=== PATIENT | female | born 1985 | race African-American/Black ===

== ENCOUNTER 2017-10-11 21:11 | Inpatient (IN) ==
[2017-10-11] MEDS ORDERED: SODIUM CHLORIDE 0.9% 2,000 ML IV STA (21:53)
[2017-10-11 22:02] LABS: Basophils # 0.2 10*3/uL (0.0-0.2); Basophils % 0.4 % (0.0-0.8); Hematocrit 45.7 VOL% (35.7-47.0); Hemoglobin 15.7 GM/DL (12.0-16.0); Immature Granulocytes % 4.5 %; Immature Granulocytes Absolute 1.73 #; Lymphocytes # 2.7 10*3/uL (1.4-4.0); Mean Corpuscular HGB Conc 34.4 GM/DL (32-36); Mean Corpuscular Hemoglobin 30 PG (27-34); Mean Platelet Volume 10.9 FL (9.6-12.0); Monocytes # 2.6 10*3/uL (0.11-0.8); Monocytes % 6.9 % (1.7-12.7); Neutrophils # 31.1 10*3/uL (1.4-7.4); Neutrophils % 81.2 % (38.7-73.9); Platelet Count 363 T/CUMM (130-400); Red Blood Count 5.25 MC/CUMM (3.8-5.5); Red Cell Distribution Width 11.6 % (9.3-17.3); White Blood Count 38.3 T/CUMM (4-12)
[2017-10-11] MEDS ORDERED: INSULIN REGULAR 100 UNIT/ML SUBCUT STA (22:02)
[2017-10-11] MEDS ORDERED: INSULIN REGULAR 100 UNIT/ML IV STA (22:02)
[2017-10-11] MEDS ORDERED: INSULIN REGULAR 100 UNIT/ML ONE ×2 (22:03→22:08)
[2017-10-11] MEDS ORDERED: ETOMIDATE 20 MG/10 ML VIAL IV ONE (22:21)
[2017-10-11] MEDS ORDERED: VECURONIUM 10 MG VIAL IV ONE (22:21)
[2017-10-11] MEDS ORDERED: ROCURONIUM 100 MG/10 ML VIAL IV ONE (22:21)
[2017-10-11 22:25] LABS: Albumin 4.1 G/DL (3.4-5.0); Bilirubin,Total 0.4 MG/DL (0.2-1.0); Calcium 8.8 MG/DL (8.5-10.1); Osmolality,Calculated 300.8 MOS/KG (273-304); Total Protein 8.4 G/DL (6.4-8.3)
[2017-10-11 22:27] LABS: ABG Oxygen Saturation 95.5 % (95-100); ABG PO2 99.3 MM HG (80-95); ABG TCO2 2.3 MMOL/L (23-27)
[2017-10-11 22:28] LABS: ABG Base Excess -30.4 MMOL/L (-2.5-2.5); ABG PCO2 11.1 MM HG (35-48)
[2017-10-11 22:29] LABS: Potassium 6.4 MMOL/L (3.5-5.1)
[2017-10-11 22:32] LABS: ABG PH 6.863 (7.35-7.45)
[2017-10-11 22:41] LABS: INR 0.9; PT Patient Result 9.8 SECS; Partial Thromboplastin Time 30.8 SECS (0-40)
[2017-10-11] MEDS ORDERED: SODIUM BICARBONATE 50 MEQ/50 ML SYRINGE IV ONE ×2 (22:41→22:45)
[2017-10-11 22:42] LABS: Apearance,Urine Slightly Hazy (Clear); Bacteria,Urine Occasional /HPF (Few); Bilirubin,Urine Negative (Negative); Blood, Urine Moderate mg/dL (Negative); Glucose,Urine (UA) >=500 mg/dL (Negative); Ketones,Urine 80 mg/dL (Negative); Mucus,Urine Occasional /LPF (Occasional); Nitrite,Urine Negative (Negative); Protein,Urine 100 MG/DL; RBC,Urine 1 /HPF (0-4); Squamous Epithelial Cell,Urine Occasional /HPF (0-10); Urine Color Yellow (Yellow); Urine Specific Gravity 1.018 (1.001-1.035); Urine Urobilinogen < 2.0 EU/DL (0.2-1.0); WBC,Urine 3 /HPF (0-6)
[2017-10-11 22:45] LABS: Barbiturates Screen,Urine Negative (Negative); Benzodiazepines Screen,Urine Negative (Negative); Cannabinoid Screen,Urine Negative (Negative); Opiate Screen,Urine Negative (Negative); Phencyclidine Screen,Urine Negative (Negative)
[2017-10-11 22:54] LABS: Lymphocytes 7 % (20-55); Platelet Estimate Normal; Segmented Neutrophils 89 % (50-85); Total Cells Counted 100
[2017-10-11] MEDS ORDERED: PROPOFOL 1,000 MG/100 ML BOTTLE IV ONE (22:55)
[2017-10-11] MEDS ORDERED: ALBUTEROL NEB SOLN 5 MG/ML 20 ML/BOTTLE CONT NEB STA (22:57)
[2017-10-11] MEDS ORDERED: CALCIUM CHLORIDE 1,000 MG/10 ML SYRINGE IV STA (22:57)
[2017-10-11] MEDS ORDERED: VANCOMYCIN INJ 1,000 MG in SODIUM CHLORIDE 0.9% 250 ML IV STA (22:57)
[2017-10-11] MEDS ORDERED: SODIUM BICARBONATE 50 MEQ/50 ML VIAL IV STA (23:05)
[2017-10-11 23:22] LABS: Lactic Acid 1.4 MMOL/L (0.4-2.0)
[2017-10-11] MEDS: PROPOFOL 1,000 MG/100 ML BOTTLE IV SCH (23:40)
[2017-10-11] MEDS ORDERED: VANCOMYCIN 1,000 MG VIAL ONE (23:43)
[2017-10-11] MEDS ORDERED: CALCIUM CHLORIDE 1,000 MG/10 ML SYRINGE IV ONE (23:43)
[2017-10-12] MEDS: INSULIN REGULAR DRIP 100 ML IV SCH ×2 (00:01→23:00)
[2017-10-12 00:02] LABS: Osmolality,Calculated 320.1 MOS/KG (273-304); Potassium 4.2 MMOL/L (3.5-5.1)
[2017-10-12 00:15] LABS: Calcium 5.7 MG/DL (8.5-10.1)
[2017-10-12 00:44] LABS: ABG Base Excess -27.6 MMOL/L (-2.5-2.5); ABG HCO3 4.7 MMOL/L (20-26); ABG Oxygen Saturation 99.2 % (95-100); ABG PCO2 25.6 MM HG (35-48); ABG PO2 416.2 MM HG (80-95); ABG TCO2 5.5 MMOL/L (23-27)
[2017-10-12] MEDS ORDERED: CALCIUM CHLORIDE 1,000 MG/10 ML SYRINGE IV STA (00:45)
[2017-10-12 00:47] LABS: ABG PH 6.881 (7.35-7.45)
[2017-10-12] MEDS ORDERED: CALCIUM CHLORIDE 1,000 MG/10 ML SYRINGE IV ONE (00:47)
[2017-10-12 00:53] LABS: HIV Antigen/Antibody Result Nonreactive (Nonreactive); Hepatitis B Surface Ag Quant < 0.10 Index; Hepatitis B Surface Ag Result Negative (Negative); Hepatitis C Virus Ab Quant 0.13 Index; Hepatitis C Virus Ab Result Negative (Negative)
[2017-10-12] MEDS ORDERED: SODIUM CHLORIDE 0.9% 1,000 ML IV ONE (02:21)
[2017-10-12] MEDS ORDERED: ALBUTEROL/IPRATROPIUM 3 ML NEB RESP TX PRN (02:21)
[2017-10-12] MEDS ORDERED: SODIUM BICARB INJ 100 MEQ in STERILE WATER INJ 400 ML IV PRN (02:21)
[2017-10-12] MEDS ORDERED: POTASSIUM CHLORIDE RIDER 10 MEQ in PREMIX 1 EACH IV PRN (02:21)
[2017-10-12] MEDS ORDERED: MAGNESIUM SULF RIDER 4 GM in PREMIX 1 EACH IV PRN (02:21)
[2017-10-12] MEDS ORDERED: SODIUM PHOSPHATE INJ 21 MMOL in SODIUM CHLORIDE 0.9% 250 ML IV PRN (02:21)
[2017-10-12] MEDS ORDERED: DEXTROSE 50% 25 GM/50 ML VIAL IV PRN ×2 (02:21)
[2017-10-12] MEDS ORDERED: INSULIN REGULAR DRIP 100 ML IV SCH (02:21)
[2017-10-12] MEDS ORDERED: MAGNESIUM SULF RIDER 2 GM in PREMIX 1 EACH IV PRN (02:21)
[2017-10-12] MEDS ORDERED: SODIUM BICARBONATE 50 MEQ/50 ML SYRINGE IV ONE ×3 (02:34→07:13)
[2017-10-12 02:46] LABS: Basophils # 0.1 10*3/uL (0.0-0.2); Basophils % 0.3 % (0.0-0.8); Mean Corpuscular Hemoglobin 30 PG (27-34); Mean Platelet Volume 10.5 FL (9.6-12.0)
[2017-10-12 02:57] LABS: Hematocrit 33.5 VOL% (35.7-47.0); Hemoglobin 11.3 GM/DL (12.0-16.0); Immature Granulocytes % 4.9 %; Immature Granulocytes Absolute 1.18 #; Lymphocytes # 2.7 10*3/uL (1.4-4.0); Lymphocytes % 11.1 % (21.3-54.2); Mean Corpuscular HGB Conc 33.7 GM/DL (32-36); Mean Corpuscular Volume 88.6 FL (87-102); Monocytes # 0.6 10*3/uL (0.11-0.8); Monocytes % 2.3 % (1.7-12.7); Neutrophils # 19.5 10*3/uL (1.4-7.4); Neutrophils % 81.4 % (38.7-73.9); Red Cell Distribution Width 11.5 % (9.3-17.3); White Blood Count 23.9 T/CUMM (4-12)
[2017-10-12 02:58] LABS: Platelet Count 200 T/CUMM (130-400); Red Blood Count 3.78 MC/CUMM (3.8-5.5)
[2017-10-12 03:06] LABS: Calcium 10.5 MG/DL (8.5-10.1); Potassium 4.1 MMOL/L (3.5-5.1)
[2017-10-12] MEDS: ENOXAPARIN 40 MG/0.4 ML SYRINGE SUBCUT SCH (03:06)
[2017-10-12] MEDS: PIPERACILLIN/TAZOBACTAM 3,375 MG in SODIUM CHLORIDE 0.9% 100 ML IV SCH ×3 (03:07→18:15)
[2017-10-12] MEDS: ALBUTEROL/IPRATROPIUM 3 ML NEB RESP TX SCH ×4 (03:09→20:50)
[2017-10-12 03:14] LABS: Band Neutrophils 13 % (0-10); Lymphocytes 14 % (20-55); Segmented Neutrophils 71 % (50-85); Total Cells Counted 100
[2017-10-12] MEDS: SODIUM CHLORIDE 0.9% 1,000 ML IV SCH ×2 (03:40→05:40)
[2017-10-12 03:49] LABS: ABG Base Excess -22.2 MMOL/L (-2.5-2.5); ABG HCO3 8.2 MMOL/L (20-26); ABG Oxygen Saturation 97.8 % (95-100); ABG PCO2 34.6 MM HG (35-48); ABG PO2 136.2 MM HG (80-95); ABG TCO2 9.3 MMOL/L (23-27)
[2017-10-12 03:53] LABS: ABG PH 6.992 (7.35-7.45)
[2017-10-12] MEDS ORDERED: SODIUM CHLORIDE 0.9% 1,000 ML IV SCH (05:54)
[2017-10-12 06:13] LABS: ABG Base Excess -15.5 MMOL/L (-2.5-2.5); ABG HCO3 11.5 MMOL/L (20-26); ABG Oxygen Saturation 98.4 % (95-100); ABG PCO2 31.2 MM HG (35-48); ABG PO2 164.3 MM HG (80-95); ABG TCO2 12.5 MMOL/L (23-27)
[2017-10-12 06:16] LABS: ABG PH 7.185 (7.35-7.45)
[2017-10-12] MEDS ORDERED: VANCOMYCIN INJ 1,250 MG in SODIUM CHLORIDE 0.9% 250 ML IV SCH (06:30)
[2017-10-12 06:54] LABS: Calcium 8.6 MG/DL (8.5-10.1); Osmolality,Calculated 319.7 MOS/KG (273-304); Potassium 3.5 MMOL/L (3.5-5.1)
[2017-10-12 08:04] LABS: ABG Base Excess -11.1 MMOL/L (-2.5-2.5); ABG HCO3 12.9 MMOL/L (20-26); ABG Oxygen Saturation 98.4 % (95-100); ABG PCO2 24.3 MM HG (35-48); ABG PH 7.343 (7.35-7.45); ABG PO2 194.4 MM HG (80-95); ABG TCO2 13.7 MMOL/L (23-27)
[2017-10-12] MEDS: PROPOFOL 1,000 MG/100 ML BOTTLE IV SCH ×2 (08:35→13:45)
[2017-10-12] MEDS: fentaNYL INJ 1,250 MCG in SODIUM CHLORIDE 0.9% 225 ML IV SCH ×3 (09:50→16:35)
[2017-10-12 10:13] LABS: ABG Base Excess -11.8 MMOL/L (-2.5-2.5); ABG HCO3 15.2 MMOL/L (20-26); ABG Oxygen Saturation 99.8 % (95-100); ABG PCO2 25.5 MM HG (35-48); ABG PH 7.318 (7.35-7.45); ABG TCO2 11.9 MMOL/L (23-27)
[2017-10-12 10:32] LABS: Calcium 8.3 MG/DL (8.5-10.1); Osmolality,Calculated 316.4 MOS/KG (273-304); Potassium 3.1 MMOL/L (3.5-5.1)
[2017-10-12] MEDS: POTASSIUM CHLORIDE RIDER 20 MEQ in PREMIX 1 EACH IV PRN (10:50)
[2017-10-12 14:06] LABS: ABG Base Excess -13.4 MMOL/L (-2.5-2.5); ABG HCO3 12.6 MMOL/L (20-26); ABG Oxygen Saturation 98.4 % (95-100); ABG PCO2 29.8 MM HG (35-48); ABG PH 7.244 (7.35-7.45); ABG PO2 232.8 MM HG (80-95); ABG TCO2 13.5 MMOL/L (23-27)
[2017-10-12 14:29] LABS: Calcium 8.5 MG/DL (8.5-10.1); Osmolality,Calculated 319.1 MOS/KG (273-304); Potassium 3.7 MMOL/L (3.5-5.1)
[2017-10-12] MEDS: SODIUM CHLOR 0.45% KCL 20 MEQ 20 MEQ/1,000 ML BAG IV SCH ×2 (15:30→23:33)
[2017-10-12] MEDS: SODIUM CHLORIDE 0.45% 1,000 ML IV SCH (17:49)
[2017-10-12 18:31] LABS: Calcium 8.8 MG/DL (8.5-10.1); Osmolality,Calculated 317.3 MOS/KG (273-304); Potassium 3.9 MMOL/L (3.5-5.1)
[2017-10-12] MEDS: fentaNYL INJ 2,500 MCG in SODIUM CHLORIDE 0.9% 450 ML IV SCH (20:15)
[2017-10-12 22:11] LABS: ABG Base Excess -12.8 MMOL/L (-2.5-2.5); ABG HCO3 14.5 MMOL/L (20-26); ABG Oxygen Saturation 99.4 % (95-100); ABG PCO2 34.2 MM HG (35-48); ABG PH 7.223 (7.35-7.45); ABG TCO2 13.1 MMOL/L (23-27)
[2017-10-12 22:37] LABS: Calcium 8.4 MG/DL (8.5-10.1); Osmolality,Calculated 315.3 MOS/KG (273-304)
[2017-10-12] MEDS: VANCOMYCIN INJ 1,250 MG in SODIUM CHLORIDE 0.9% 250 ML IV SCH (23:33)
[2017-10-13] MEDS: PROPOFOL 1,000 MG/100 ML BOTTLE IV SCH ×2 (00:10→11:30)
[2017-10-13] MEDS: ALBUTEROL/IPRATROPIUM 3 ML NEB RESP TX SCH ×4 (01:04→21:15)
[2017-10-13] MEDS: fentaNYL INJ 2,500 MCG in SODIUM CHLORIDE 0.9% 450 ML IV SCH ×4 (01:38→20:16)
[2017-10-13 03:48] LABS: ABG Base Excess -9.9 MMOL/L (-2.5-2.5); ABG HCO3 16.7 MMOL/L (20-26); ABG Oxygen Saturation 98.4 % (95-100); ABG PCO2 39.1 MM HG (35-48); ABG PH 7.248 (7.35-7.45); ABG TCO2 17.9 MMOL/L (23-27)
[2017-10-13 03:58] LABS: Basophils % 0.2 % (0.0-0.8); Eosinophils # 0.1 10*3/uL (0.0-0.87); Eosinophils % 0.4 % (0.00-10.9); Hematocrit 27.8 VOL% (35.7-47.0); Hemoglobin 9.8 GM/DL (12.0-16.0); Immature Granulocytes % 1.4 %; Immature Granulocytes Absolute 0.19 #; Lymphocytes % 7.8 % (21.3-54.2); Mean Corpuscular HGB Conc 35.3 GM/DL (32-36); Mean Corpuscular Hemoglobin 30 PG (27-34); Mean Platelet Volume 10.9 FL (9.6-12.0); Monocytes % 7.6 % (1.7-12.7); Neutrophils # 10.9 10*3/uL (1.4-7.4); Neutrophils % 82.6 % (38.7-73.9); Platelet Count 184 T/CUMM (130-400); Red Blood Count 3.31 MC/CUMM (3.8-5.5); White Blood Count 13.1 T/CUMM (4-12)
[2017-10-13] MEDS: PIPERACILLIN/TAZOBACTAM 3,375 MG in SODIUM CHLORIDE 0.9% 100 ML IV SCH ×3 (04:20→18:00)
[2017-10-13 04:34] LABS: Calcium 8.4 MG/DL (8.5-10.1); Osmolality,Calculated 314.9 MOS/KG (273-304); Potassium 3.7 MMOL/L (3.5-5.1)
[2017-10-13 05:31] LABS: Band Neutrophils 6 % (0-10); Hypochromasia 1+; Lymphocytes 10 % (20-55); Microcytosis Slight; Platelet Estimate Adequate; Segmented Neutrophils 81 % (50-85); Total Cells Counted 100
[2017-10-13] MEDS: POTASSIUM CHLORIDE RIDER 20 MEQ in PREMIX 1 EACH IV PRN (07:18)
[2017-10-13] MEDS: SODIUM CHLOR 0.45% KCL 20 MEQ 20 MEQ/1,000 ML BAG IV SCH ×2 (07:40→16:00)
[2017-10-13] MEDS: ENOXAPARIN 40 MG/0.4 ML SYRINGE SUBCUT SCH (09:00)
[2017-10-13] MEDS: fentaNYL INJ 1,250 MCG in SODIUM CHLORIDE 0.9% 225 ML IV SCH (09:30)
[2017-10-13] MEDS ORDERED: DIVALPROEX 500 MG TABLET PO SCH (11:30)
[2017-10-13] MEDS ORDERED: DULoxetine 30 MG CAPSULE PO SCH (11:30)
[2017-10-13] MEDS: BENZTROPINE 1 MG TABLET PO SCH ×2 (12:00→20:17)
[2017-10-13] MEDS: DULoxetine 30 MG CAPSULE PO SCH (12:00)
[2017-10-13] MEDS: VALPROIC ACID 250 MG/5 ML UDCUP PO SCH ×2 (13:15→18:20)
[2017-10-13] MEDS: ARIPiprazole 5 MG TABLET PO SCH (13:15)
[2017-10-13] MEDS: SODIUM CHLORIDE 0.45% 1,000 ML IV SCH (14:43)
[2017-10-13] MEDS: INSULIN REGULAR DRIP 100 ML IV SCH (15:00)
[2017-10-13] MEDS: busPIRone 15 MG TABLET PO SCH ×2 (15:00→20:17)
[2017-10-13 20:24] LABS: Calcium 8.1 MG/DL (8.5-10.1); Potassium 3.7 MMOL/L (3.5-5.1)
[2017-10-14] MEDS: VALPROIC ACID 250 MG/5 ML UDCUP PO SCH ×4 (00:51→18:29)
[2017-10-14] MEDS: PIPERACILLIN/TAZOBACTAM 3,375 MG in SODIUM CHLORIDE 0.9% 100 ML IV SCH ×3 (02:43→18:29)
[2017-10-14] MEDS: INSULIN REGULAR DRIP 100 ML IV SCH (02:57)
[2017-10-14] MEDS: PROPOFOL 1,000 MG/100 ML BOTTLE IV SCH ×2 (02:57→20:15)
[2017-10-14] MEDS: ALBUTEROL/IPRATROPIUM 3 ML NEB RESP TX SCH ×4 (03:04→19:45)
[2017-10-14 03:55] LABS: ABG Base Excess -6.9 MMOL/L (-2.5-2.5); ABG HCO3 19.4 MMOL/L (20-26); ABG Oxygen Saturation 98.6 % (95-100); ABG PCO2 42.3 MM HG (35-48); ABG PH 7.279 (7.35-7.45); ABG TCO2 20.7 MMOL/L (23-27)
[2017-10-14 04:05] LABS: Basophils % 0.3 % (0.0-0.8); Eosinophils # 0.1 10*3/uL (0.0-0.87); Eosinophils % 0.6 % (0.00-10.9); Hematocrit 24.2 VOL% (35.7-47.0); Hemoglobin 8.9 GM/DL (12.0-16.0); Immature Granulocytes % 0.8 %; Immature Granulocytes Absolute 0.12 #; Lymphocytes # 1.5 10*3/uL (1.4-4.0); Lymphocytes % 9.5 % (21.3-54.2); Mean Corpuscular HGB Conc 36.8 GM/DL (32-36); Mean Corpuscular Hemoglobin 30 PG (27-34); Mean Corpuscular Volume 82.3 FL (87-102); Mean Platelet Volume 10.7 FL (9.6-12.0); Monocytes # 1.1 10*3/uL (0.11-0.8); Monocytes % 7.2 % (1.7-12.7); Neutrophils # 12.7 10*3/uL (1.4-7.4); Neutrophils % 81.6 % (38.7-73.9); Platelet Count 170 T/CUMM (130-400); Red Blood Count 2.94 MC/CUMM (3.8-5.5); Red Cell Distribution Width 13.1 % (9.3-17.3); White Blood Count 15.5 T/CUMM (4-12)
[2017-10-14 04:39] LABS: Calcium 8.1 MG/DL (8.5-10.1); Osmolality,Calculated 309.6 MOS/KG (273-304); Potassium 3.8 MMOL/L (3.5-5.1)
[2017-10-14 05:13] LABS: Band Neutrophils 8 % (0-10); Lymphocytes 5 % (20-55); Segmented Neutrophils 79 % (50-85); Total Cells Counted 100
[2017-10-14 05:14] LABS: Hypochromasia 1+; Microcytosis Slight
[2017-10-14] MEDS: POTASSIUM CHLORIDE RIDER 20 MEQ in PREMIX 1 EACH IV PRN (06:30)
[2017-10-14] MEDS ORDERED: INFLUENZA VIRUS VACCINE 0.5 ML SYRINGE IM ONE (08:39)
[2017-10-14] MEDS ORDERED: PNEUMOCOCCAL VACCINE (13 VALENT) 0.5 ML SYRINGE IM ONE (08:43)
[2017-10-14] MEDS: SODIUM CHLOR 0.45% KCL 20 MEQ 20 MEQ/1,000 ML BAG IV SCH ×3 (09:05→16:36)
[2017-10-14] MEDS: BENZTROPINE 1 MG TABLET PO SCH ×2 (09:55→21:07)
[2017-10-14] MEDS: busPIRone 15 MG TABLET PO SCH ×3 (09:55→21:07)
[2017-10-14] MEDS: ARIPiprazole 5 MG TABLET PO SCH (09:55)
[2017-10-14] MEDS: ENOXAPARIN 40 MG/0.4 ML SYRINGE SUBCUT SCH (10:00)
[2017-10-14] MEDS: INSULIN LISPRO 100 UNIT/ML SUBCUT SCH ×3 (12:13→20:39)
[2017-10-14] MEDS: VANCOMYCIN INJ 1,250 MG in SODIUM CHLORIDE 0.9% 250 ML IV SCH (15:14)
[2017-10-14] MEDS: fentaNYL INJ 2,500 MCG in SODIUM CHLORIDE 0.9% 450 ML IV SCH (19:26)
[2017-10-15] MEDS: ALBUTEROL/IPRATROPIUM 3 ML NEB RESP TX SCH ×5 (00:05→20:22)
[2017-10-15] MEDS: SODIUM CHLOR 0.45% KCL 20 MEQ 20 MEQ/1,000 ML BAG IV SCH ×3 (00:51→23:25)
[2017-10-15] MEDS: VALPROIC ACID 250 MG/5 ML UDCUP PO SCH ×4 (00:51→18:02)
[2017-10-15] MEDS: INSULIN LISPRO 100 UNIT/ML SUBCUT SCH ×6 (00:51→21:19)
[2017-10-15] MEDS: PROPOFOL 1,000 MG/100 ML BOTTLE IV SCH ×4 (01:07→18:49)
[2017-10-15 03:58] LABS: ABG Base Excess -6.6 MMOL/L (-2.5-2.5); ABG HCO3 18.3 MMOL/L (20-26); ABG Oxygen Saturation 98.2 % (95-100); ABG PCO2 33.6 MM HG (35-48); ABG PH 7.353 (7.35-7.45); ABG PO2 183.6 MM HG (80-95); ABG TCO2 19.3 MMOL/L (23-27); Allen Test Positive; Pt O2 Delivery Device Ventilator
[2017-10-15 04:09] LABS: Basophils # 0.1 10*3/uL (0.0-0.2); Basophils % 0.3 % (0.0-0.8); Eosinophils # 0.1 10*3/uL (0.0-0.87); Eosinophils % 0.8 % (0.00-10.9); Hematocrit 22.5 VOL% (35.7-47.0); Hemoglobin 7.8 GM/DL (12.0-16.0); Immature Granulocytes % 0.6 %; Lymphocytes # 1.9 10*3/uL (1.4-4.0); Lymphocytes % 10.3 % (21.3-54.2); Mean Corpuscular HGB Conc 34.7 GM/DL (32-36); Mean Corpuscular Hemoglobin 30 PG (27-34); Mean Corpuscular Volume 85.2 FL (87-102); Mean Platelet Volume 10.4 FL (9.6-12.0); Monocytes # 1.3 10*3/uL (0.11-0.8); Monocytes % 6.9 % (1.7-12.7); Neutrophils # 14.6 10*3/uL (1.4-7.4); Neutrophils % 81.1 % (38.7-73.9); Platelet Count 178 T/CUMM (130-400); Red Blood Count 2.64 MC/CUMM (3.8-5.5); Red Cell Distribution Width 13.4 % (9.3-17.3)
[2017-10-15] MEDS: PIPERACILLIN/TAZOBACTAM 3,375 MG in SODIUM CHLORIDE 0.9% 100 ML IV SCH ×3 (04:14→21:20)
[2017-10-15 04:46] LABS: Calcium 8.2 MG/DL (8.5-10.1); Potassium 3.6 MMOL/L (3.5-5.1)
[2017-10-15 04:49] LABS: Band Neutrophils 2 % (0-10); Eosinophils 1 % (0-10); Hypochromasia 1+; Lymphocytes 9 % (20-55); Microcytosis Slight; Platelet Estimate Normal; Segmented Neutrophils 80 % (50-85); Total Cells Counted 100
[2017-10-15] MEDS: POTASSIUM CHLORIDE RIDER 20 MEQ in PREMIX 1 EACH IV PRN (06:12)
[2017-10-15] MEDS: busPIRone 15 MG TABLET PO SCH ×3 (08:12→21:23)
[2017-10-15] MEDS: BENZTROPINE 1 MG TABLET PO SCH ×2 (08:12→21:23)
[2017-10-15] MEDS: ENOXAPARIN 40 MG/0.4 ML SYRINGE SUBCUT SCH (08:13)
[2017-10-15] MEDS: ARIPiprazole 5 MG TABLET PO SCH (08:13)
[2017-10-15] MEDS ORDERED: SODIUM CHLORIDE 0.9% 1,000 ML IV PRN (10:23)
[2017-10-15] MEDS: VANCOMYCIN INJ 1,250 MG in SODIUM CHLORIDE 0.9% 250 ML IV SCH (14:46)
[2017-10-15 18:02] LABS: Hematocrit 29.9 VOL% (35.7-47.0); Hemoglobin 10.4 GM/DL (12.0-16.0)
[2017-10-16] MEDS: VALPROIC ACID 250 MG/5 ML UDCUP PO SCH ×4 (00:33→17:42)
[2017-10-16] MEDS: INSULIN LISPRO 100 UNIT/ML SUBCUT SCH ×6 (00:33→21:09)
[2017-10-16] MEDS: ALBUTEROL/IPRATROPIUM 3 ML NEB RESP TX SCH ×4 (00:38→20:11)
[2017-10-16] MEDS: PROPOFOL 1,000 MG/100 ML BOTTLE IV SCH ×4 (02:24→18:48)
[2017-10-16] MEDS: PIPERACILLIN/TAZOBACTAM 3,375 MG in SODIUM CHLORIDE 0.9% 100 ML IV SCH ×3 (04:45→21:06)
[2017-10-16 05:19] LABS: Basophils # 0.1 10*3/uL (0.0-0.2); Basophils % 0.4 % (0.0-0.8); Eosinophils # 0.2 10*3/uL (0.0-0.87); Eosinophils % 1.4 % (0.00-10.9); Hematocrit 30.3 VOL% (35.7-47.0); Hemoglobin 11.1 GM/DL (12.0-16.0); Immature Granulocytes % 1.5 %; Immature Granulocytes Absolute 0.24 #; Lymphocytes # 2.3 10*3/uL (1.4-4.0); Lymphocytes % 14.1 % (21.3-54.2); Mean Corpuscular HGB Conc 36.6 GM/DL (32-36); Mean Corpuscular Hemoglobin 31 PG (27-34); Mean Corpuscular Volume 84.9 FL (87-102); Mean Platelet Volume 10.1 FL (9.6-12.0); Monocytes # 1.8 10*3/uL (0.11-0.8); Monocytes % 11.3 % (1.7-12.7); Neutrophils # 11.6 10*3/uL (1.4-7.4); Neutrophils % 71.3 % (38.7-73.9); Platelet Count 197 T/CUMM (130-400); Red Blood Count 3.57 MC/CUMM (3.8-5.5); White Blood Count 16.2 T/CUMM (4-12)
[2017-10-16 05:47] LABS: Band Neutrophils 2 % (0-10); Giant Platelets Few; Hypochromasia 1+; Lymphocytes 13 % (20-55); Microcytosis Slight; Platelet Estimate Adequate; Segmented Neutrophils 76 % (50-85); Total Cells Counted 100
[2017-10-16 05:49] LABS: Calcium 8.1 MG/DL (8.5-10.1); Potassium 3.7 MMOL/L (3.5-5.1)
[2017-10-16] MEDS: SODIUM CHLOR 0.45% KCL 20 MEQ 20 MEQ/1,000 ML BAG IV SCH ×2 (07:37→16:39)
[2017-10-16] MEDS: fentaNYL INJ 2,500 MCG in SODIUM CHLORIDE 0.9% 450 ML IV SCH ×2 (07:38→18:26)
[2017-10-16] MEDS ORDERED: PNEUMOCOCCAL VACCINE (13 VALENT) 0.5 ML SYRINGE IM ONE (09:00)
[2017-10-16] MEDS ORDERED: INFLUENZA VIRUS VACCINE 0.5 ML SYRINGE IM ONE (09:00)
[2017-10-16] MEDS: BENZTROPINE 1 MG TABLET PO SCH ×2 (09:19→21:10)
[2017-10-16] MEDS: busPIRone 15 MG TABLET PO SCH ×3 (09:19→21:10)
[2017-10-16] MEDS: ARIPiprazole 5 MG TABLET PO SCH (09:19)
[2017-10-16] MEDS: ENOXAPARIN 40 MG/0.4 ML SYRINGE SUBCUT SCH (09:20)
[2017-10-16] MEDS: VANCOMYCIN INJ 1,250 MG in SODIUM CHLORIDE 0.9% 250 ML IV SCH (14:20)
[2017-10-17] MEDS: INSULIN LISPRO 100 UNIT/ML SUBCUT SCH ×6 (00:06→21:10)
[2017-10-17] MEDS: VALPROIC ACID 250 MG/5 ML UDCUP PO SCH ×4 (00:07→18:21)
[2017-10-17] MEDS: PROPOFOL 1,000 MG/100 ML BOTTLE IV SCH ×5 (00:08→20:30)
[2017-10-17] MEDS: SODIUM CHLOR 0.45% KCL 20 MEQ 20 MEQ/1,000 ML BAG IV SCH ×5 (00:09→21:38)
[2017-10-17] MEDS: ALBUTEROL/IPRATROPIUM 3 ML NEB RESP TX SCH ×4 (01:48→19:10)
[2017-10-17] MEDS: PIPERACILLIN/TAZOBACTAM 3,375 MG in SODIUM CHLORIDE 0.9% 100 ML IV SCH ×3 (03:29→21:09)
[2017-10-17 04:16] LABS: Allen Test Positive; Pt O2 Delivery Device Ventilator
[2017-10-17 04:17] LABS: ABG Base Excess -7.5 MMOL/L (-2.5-2.5); ABG HCO3 17.3 MMOL/L (20-26); ABG Oxygen Saturation 95.6 % (95-100); ABG PCO2 32.8 MM HG (35-48); ABG TCO2 18.3 MMOL/L (23-27)
[2017-10-17 04:30] LABS: Basophils % 0.5 % (0.0-0.8); Eosinophils % 1.4 % (0.00-10.9); Hematocrit 33.7 VOL% (35.7-47.0); Hemoglobin 11.4 GM/DL (12.0-16.0); Immature Granulocytes % 5.9 %; Lymphocytes % 15.9 % (21.3-54.2); Mean Corpuscular HGB Conc 33.8 GM/DL (32-36); Mean Corpuscular Hemoglobin 30 PG (27-34); Mean Corpuscular Volume 88.5 FL (87-102); Monocytes % 16.4 % (1.7-12.7); Neutrophils # 10.3 10*3/uL (1.4-7.4); Neutrophils % 59.9 % (38.7-73.9); Platelet Count 249 T/CUMM (130-400); Red Blood Count 3.81 MC/CUMM (3.8-5.5); Red Cell Distribution Width 14.3 % (9.3-17.3); White Blood Count 17.2 T/CUMM (4-12)
[2017-10-17 04:31] LABS: Basophils # 0.1 10*3/uL (0.0-0.2); Eosinophils # 0.2 10*3/uL (0.0-0.87); Immature Granulocytes Absolute 1.02 #; Lymphocytes # 2.7 10*3/uL (1.4-4.0); Monocytes # 2.8 10*3/uL (0.11-0.8); NRBC # 0.03 10*3/uL
[2017-10-17 04:57] LABS: Calcium 8.3 MG/DL (8.5-10.1); Osmolality,Calculated 304.4 MOS/KG (273-304); Potassium 4.1 MMOL/L (3.5-5.1)
[2017-10-17 05:06] LABS: Band Neutrophils 2 % (0-10); Giant Platelets Few; Hypochromasia Slight; Lymphocytes 18 % (20-55); Platelet Estimate Adequate; Segmented Neutrophils 62 % (50-85); Total Cells Counted 100
[2017-10-17 05:07] LABS: Microcytosis Slight; Ovalocytes Slight
[2017-10-17 05:40] LABS: Prealbumin 6.5 MG/DL (20-40)
[2017-10-17] MEDS: ENOXAPARIN 40 MG/0.4 ML SYRINGE SUBCUT SCH (09:35)
[2017-10-17] MEDS: ARIPiprazole 5 MG TABLET PO SCH (09:41)
[2017-10-17] MEDS: busPIRone 15 MG TABLET PO SCH ×3 (09:41→21:16)
[2017-10-17] MEDS: BENZTROPINE 1 MG TABLET PO SCH ×2 (09:42→21:16)
[2017-10-17] MEDS ORDERED: INSULIN GLARGINE 100 UNIT/ML SUBCUT ONE (12:23)
[2017-10-17] MEDS: LORazepam 2 MG/1 ML VIAL IV PRN ×2 (12:25→18:19)
[2017-10-17] MEDS: VANCOMYCIN INJ 1,250 MG in SODIUM CHLORIDE 0.9% 250 ML IV SCH (15:14)
[2017-10-17] MEDS: fentaNYL INJ 2,500 MCG in SODIUM CHLORIDE 0.9% 450 ML IV SCH (18:37)
[2017-10-17] MEDS ORDERED: INSULIN GLARGINE 100 UNIT/ML SUBCUT SCH (21:00)
[2017-10-18] MEDS: VALPROIC ACID 250 MG/5 ML UDCUP PO SCH ×4 (00:14→17:06)
[2017-10-18] MEDS: INSULIN LISPRO 100 UNIT/ML SUBCUT SCH ×6 (00:14→19:46)
[2017-10-18] MEDS: ALBUTEROL/IPRATROPIUM 3 ML NEB RESP TX SCH ×4 (00:52→19:02)
[2017-10-18] MEDS: PIPERACILLIN/TAZOBACTAM 3,375 MG in SODIUM CHLORIDE 0.9% 100 ML IV SCH ×3 (03:55→19:46)
[2017-10-18 04:00] LABS: ABG Base Excess -4.5 MMOL/L (-2.5-2.5); ABG HCO3 20.7 MMOL/L (20-26); ABG Oxygen Saturation 99.3 % (95-100); ABG PCO2 30.5 MM HG (35-48); ABG PH 7.409 (7.35-7.45); ABG TCO2 17.6 MMOL/L (23-27); Allen Test Positive; Pt O2 Delivery Device Ventilator
[2017-10-18] MEDS: PROPOFOL 1,000 MG/100 ML BOTTLE IV SCH ×3 (04:10→18:52)
[2017-10-18 04:44] LABS: Basophils # 0.1 10*3/uL (0.0-0.2); Basophils % 0.4 % (0.0-0.8); Eosinophils # 0.2 10*3/uL (0.0-0.87); Eosinophils % 1.3 % (0.00-10.9); Hematocrit 28.7 VOL% (35.7-47.0); Hemoglobin 9.6 GM/DL (12.0-16.0); Immature Granulocytes Absolute 1.48 #; Lymphocytes # 2.3 10*3/uL (1.4-4.0); Lymphocytes % 16.9 % (21.3-54.2); Mean Corpuscular HGB Conc 33.4 GM/DL (32-36); Mean Corpuscular Hemoglobin 30 PG (27-34); Mean Corpuscular Volume 88.9 FL (87-102); Mean Platelet Volume 9.7 FL (9.6-12.0); Monocytes # 2.2 10*3/uL (0.11-0.8); Monocytes % 16.5 % (1.7-12.7); Neutrophils # 7.3 10*3/uL (1.4-7.4); Neutrophils % 53.9 % (38.7-73.9); Platelet Count 272 T/CUMM (130-400); Red Blood Count 3.23 MC/CUMM (3.8-5.5); White Blood Count 13.5 T/CUMM (4-12)
[2017-10-18 05:05] LABS: Band Neutrophils 4 % (0-10); Eosinophils 1 % (0-10); Lymphocytes 23 % (20-55); Myelocytes 1 %; Segmented Neutrophils 55 % (50-85); Total Cells Counted 100
[2017-10-18 05:06] LABS: Hypochromasia 1+; Microcytosis Slight; Platelet Estimate Normal
[2017-10-18 05:16] LABS: Calcium 7.6 MG/DL (8.5-10.1); Osmolality,Calculated 305.4 MOS/KG (273-304); Potassium 3.8 MMOL/L (3.5-5.1)
[2017-10-18] MEDS: SODIUM CHLOR 0.45% KCL 20 MEQ 20 MEQ/1,000 ML BAG IV SCH ×4 (06:00→18:52)
[2017-10-18] MEDS: POTASSIUM CHLORIDE RIDER 20 MEQ in PREMIX 1 EACH IV PRN (06:38)
[2017-10-18] MEDS: LORazepam 2 MG/1 ML VIAL IV PRN ×2 (07:42→17:06)
[2017-10-18] MEDS ORDERED: FUROSEMIDE 40 MG/4 ML VIAL IV ONE (08:57)
[2017-10-18] MEDS: busPIRone 15 MG TABLET PO SCH ×3 (09:49→20:05)
[2017-10-18] MEDS: BENZTROPINE 1 MG TABLET PO SCH ×2 (09:49→20:05)
[2017-10-18] MEDS: ENOXAPARIN 40 MG/0.4 ML SYRINGE SUBCUT SCH (09:49)
[2017-10-18] MEDS: ARIPiprazole 5 MG TABLET PO SCH (09:51)
[2017-10-18] MEDS: VANCOMYCIN INJ 1,250 MG in SODIUM CHLORIDE 0.9% 250 ML IV SCH (09:54)
[2017-10-18] MEDS ORDERED: INSULIN GLARGINE 100 UNIT/ML SUBCUT ONE ×2 (12:11→13:10)
[2017-10-18] MEDS: DESITIN 4OZ/NYSTATIN 15 GRAM MIXTURE PASTE TOP SCH ×2 (12:53→20:05)
[2017-10-18] MEDS: fentaNYL INJ 2,500 MCG in SODIUM CHLORIDE 0.9% 450 ML IV SCH (18:23)
[2017-10-18] MEDS: INSULIN GLARGINE 100 UNIT/ML SUBCUT SCH (20:05)
[2017-10-19] MEDS: VALPROIC ACID 250 MG/5 ML UDCUP PO SCH ×4 (00:21→17:24)
[2017-10-19] MEDS: INSULIN LISPRO 100 UNIT/ML SUBCUT SCH ×6 (00:21→21:35)
[2017-10-19] MEDS: ALBUTEROL/IPRATROPIUM 3 ML NEB RESP TX SCH ×4 (01:33→19:19)
[2017-10-19] MEDS: PROPOFOL 1,000 MG/100 ML BOTTLE IV SCH ×2 (01:40→06:35)
[2017-10-19 03:23] LABS: ABG Base Excess -3.5 MMOL/L (-2.5-2.5); ABG HCO3 19.7 MMOL/L (20-26); ABG Oxygen Saturation 98.4 % (95-100); ABG PCO2 29.3 MM HG (35-48); ABG PH 7.446 (7.35-7.45); ABG PO2 155.2 MM HG (80-95); ABG TCO2 20.6 MMOL/L (23-27)
[2017-10-19] MEDS: SODIUM CHLOR 0.45% KCL 20 MEQ 20 MEQ/1,000 ML BAG IV SCH ×3 (04:12→22:30)
[2017-10-19] MEDS: PIPERACILLIN/TAZOBACTAM 3,375 MG in SODIUM CHLORIDE 0.9% 100 ML IV SCH ×3 (04:12→21:35)
[2017-10-19] MEDS: VANCOMYCIN INJ 1,250 MG in SODIUM CHLORIDE 0.9% 250 ML IV SCH ×2 (04:13→21:37)
[2017-10-19 04:45] LABS: Basophils # 0.1 10*3/uL (0.0-0.2); Basophils % 0.5 % (0.0-0.8); Eosinophils # 0.2 10*3/uL (0.0-0.87); Eosinophils % 1.5 % (0.00-10.9); Hematocrit 27.9 VOL% (35.7-47.0); Hemoglobin 9.4 GM/DL (12.0-16.0); Immature Granulocytes Absolute 2.09 #; Lymphocytes # 2.2 10*3/uL (1.4-4.0); Lymphocytes % 14.9 % (21.3-54.2); Mean Corpuscular HGB Conc 33.7 GM/DL (32-36); Mean Corpuscular Hemoglobin 30 PG (27-34); Mean Corpuscular Volume 88.6 FL (87-102); Mean Platelet Volume 9.8 FL (9.6-12.0); Monocytes # 2.4 10*3/uL (0.11-0.8); Monocytes % 16.1 % (1.7-12.7); Neutrophils # 7.9 10*3/uL (1.4-7.4); Platelet Count 327 T/CUMM (130-400); Red Blood Count 3.15 MC/CUMM (3.8-5.5); White Blood Count 14.9 T/CUMM (4-12)
[2017-10-19 05:04] LABS: Calcium 7.6 MG/DL (8.5-10.1); Osmolality,Calculated 300.7 MOS/KG (273-304)
[2017-10-19 05:22] LABS: Band Neutrophils 7 % (0-10); Eosinophils 2 % (0-10); Lymphocytes 16 % (20-55); Platelet Estimate Adequate; Segmented Neutrophils 50 % (50-85); Total Cells Counted 100
[2017-10-19 05:23] LABS: Giant Platelets Few; Hypochromasia 1+; Microcytosis Slight
[2017-10-19] MEDS: BENZTROPINE 1 MG TABLET PO SCH ×2 (08:20→21:36)
[2017-10-19] MEDS: ARIPiprazole 5 MG TABLET PO SCH (08:20)
[2017-10-19] MEDS: INSULIN GLARGINE 100 UNIT/ML SUBCUT SCH ×2 (08:20→21:36)
[2017-10-19] MEDS: busPIRone 15 MG TABLET PO SCH ×3 (08:20→21:36)
[2017-10-19] MEDS: ENOXAPARIN 40 MG/0.4 ML SYRINGE SUBCUT SCH (08:20)
[2017-10-19] MEDS: LORazepam 2 MG/1 ML VIAL IV PRN ×3 (10:55→19:35)
[2017-10-19] MEDS ORDERED: FUROSEMIDE 40 MG/4 ML VIAL IV ONE (11:01)
[2017-10-19] MEDS ORDERED: HALOPERIDOL 5 MG/ML AMP IV ONE (11:31)
[2017-10-19] MEDS: DESITIN 4OZ/NYSTATIN 15 GRAM MIXTURE PASTE TOP SCH ×2 (12:20→21:36)
[2017-10-19] MEDS: NYSTATIN POWDER 15 GM BOTTLE TOP SCH ×2 (12:20→21:36)
[2017-10-19 12:23] LABS: Allen Test Positive
[2017-10-19 12:24] LABS: ABG Base Excess -2.5 MMOL/L (-2.5-2.5); ABG HCO3 22.3 MMOL/L (20-26); ABG Oxygen Saturation 96.4 % (95-100); ABG PCO2 28.1 MM HG (35-48); ABG PH 7.465 (7.35-7.45); ABG PO2 73.1 MM HG (80-95); ABG TCO2 18.2 MMOL/L (23-27)
[2017-10-19] MEDS: methylPREDNISolone SOD SUC 40 MG/1 ML VIAL IV SCH ×2 (14:11→21:37)
[2017-10-19] MEDS: CLORAZEPATE 7.5 MG TABLET PO SCH ×2 (15:49→21:36)
[2017-10-20] MEDS: INSULIN LISPRO 100 UNIT/ML SUBCUT SCH ×6 (00:02→21:19)
[2017-10-20] MEDS: VALPROIC ACID 250 MG/5 ML UDCUP PO SCH ×4 (00:03→18:12)
[2017-10-20] MEDS: SODIUM CHLOR 0.45% KCL 20 MEQ 20 MEQ/1,000 ML BAG IV SCH ×2 (00:44→10:08)
[2017-10-20] MEDS: ALBUTEROL/IPRATROPIUM 3 ML NEB RESP TX SCH ×4 (01:20→19:24)
[2017-10-20] MEDS: PIPERACILLIN/TAZOBACTAM 3,375 MG in SODIUM CHLORIDE 0.9% 100 ML IV SCH ×3 (04:50→23:48)
[2017-10-20 06:07] LABS: Basophils # 0.1 10*3/uL (0.0-0.2); Basophils % 0.4 % (0.0-0.8); Eosinophils # 0.1 10*3/uL (0.0-0.87); Eosinophils % 0.4 % (0.00-10.9); Hemoglobin 9.8 GM/DL (12.0-16.0); Immature Granulocytes % 10.7 %; Immature Granulocytes Absolute 1.95 #; Lymphocytes # 2.7 10*3/uL (1.4-4.0); Lymphocytes % 14.6 % (21.3-54.2); Mean Corpuscular HGB Conc 33.8 GM/DL (32-36); Mean Corpuscular Hemoglobin 30 PG (27-34); Mean Corpuscular Volume 87.3 FL (87-102); Monocytes # 2.5 10*3/uL (0.11-0.8); Monocytes % 13.9 % (1.7-12.7); Neutrophils # 10.9 10*3/uL (1.4-7.4); Platelet Count 416 T/CUMM (130-400); Red Blood Count 3.32 MC/CUMM (3.8-5.5); Red Cell Distribution Width 13.2 % (9.3-17.3); White Blood Count 18.2 T/CUMM (4-12)
[2017-10-20] MEDS: methylPREDNISolone SOD SUC 40 MG/1 ML VIAL IV SCH (06:30)
[2017-10-20 06:33] LABS: Band Neutrophils 11 % (0-10); Hypochromasia 1+; Lymphocytes 10 % (20-55); Platelet Estimate Increased; Segmented Neutrophils 66 % (50-85); Total Cells Counted 100
[2017-10-20 06:36] LABS: Calcium 8.4 MG/DL (8.5-10.1); Osmolality,Calculated 293.6 MOS/KG (273-304)
[2017-10-20] MEDS: INSULIN GLARGINE 100 UNIT/ML SUBCUT SCH ×2 (08:33→21:20)
[2017-10-20] MEDS: ARIPiprazole 5 MG TABLET PO SCH (08:34)
[2017-10-20] MEDS: CLORAZEPATE 7.5 MG TABLET PO SCH ×3 (08:34→21:14)
[2017-10-20] MEDS: ENOXAPARIN 40 MG/0.4 ML SYRINGE SUBCUT SCH (08:34)
[2017-10-20] MEDS: BENZTROPINE 1 MG TABLET PO SCH ×2 (08:34→21:14)
[2017-10-20] MEDS: busPIRone 15 MG TABLET PO SCH ×3 (08:34→21:14)
[2017-10-20] MEDS: DESITIN 4OZ/NYSTATIN 15 GRAM MIXTURE PASTE TOP SCH ×2 (11:46→21:15)
[2017-10-20] MEDS: NYSTATIN POWDER 15 GM BOTTLE TOP SCH ×2 (11:46→21:15)
[2017-10-20] MEDS ORDERED: FUROSEMIDE 40 MG/4 ML VIAL IV ONE (12:00)
[2017-10-20] MEDS: predniSONE 20 MG TABLET PO SCH (13:00)
[2017-10-20] MEDS: VANCOMYCIN INJ 1,250 MG in SODIUM CHLORIDE 0.9% 250 ML IV SCH (22:08)
[2017-10-21] MEDS: ALBUTEROL/IPRATROPIUM 3 ML NEB RESP TX SCH ×4 (00:10→20:10)
[2017-10-21] MEDS: VALPROIC ACID 250 MG/5 ML UDCUP PO SCH ×4 (00:21→17:55)
[2017-10-21] MEDS: INSULIN LISPRO 100 UNIT/ML SUBCUT SCH ×6 (00:21→20:27)
[2017-10-21] MEDS: PIPERACILLIN/TAZOBACTAM 3,375 MG in SODIUM CHLORIDE 0.9% 100 ML IV SCH ×3 (06:02→22:34)
[2017-10-21] MEDS: INSULIN GLARGINE 100 UNIT/ML SUBCUT SCH ×2 (10:42→20:28)
[2017-10-21] MEDS: predniSONE 20 MG TABLET PO SCH (10:44)
[2017-10-21] MEDS: busPIRone 15 MG TABLET PO SCH ×3 (10:44→20:27)
[2017-10-21] MEDS: BENZTROPINE 1 MG TABLET PO SCH ×2 (10:44→20:27)
[2017-10-21] MEDS: CLORAZEPATE 7.5 MG TABLET PO SCH ×3 (10:44→20:27)
[2017-10-21] MEDS: DULoxetine 30 MG CAPSULE PO SCH (10:45)
[2017-10-21] MEDS: ENOXAPARIN 40 MG/0.4 ML SYRINGE SUBCUT SCH (10:46)
[2017-10-21] MEDS: NYSTATIN POWDER 15 GM BOTTLE TOP SCH ×2 (14:01→20:34)
[2017-10-21] MEDS: DESITIN 4OZ/NYSTATIN 15 GRAM MIXTURE PASTE TOP SCH ×2 (14:02→20:34)
[2017-10-21] MEDS: ARIPiprazole 5 MG TABLET PO SCH (14:02)
[2017-10-21] MEDS: VANCOMYCIN INJ 1,250 MG in SODIUM CHLORIDE 0.9% 250 ML IV SCH (21:25)
[2017-10-22] MEDS: INSULIN LISPRO 100 UNIT/ML SUBCUT SCH ×6 (00:59→21:57)
[2017-10-22] MEDS: VALPROIC ACID 250 MG/5 ML UDCUP PO SCH ×4 (01:00→17:18)
[2017-10-22] MEDS: ALBUTEROL/IPRATROPIUM 3 ML NEB RESP TX SCH ×4 (01:25→20:08)
[2017-10-22 05:04] LABS: Basophils # 0.1 10*3/uL (0.0-0.2); Basophils % 0.3 % (0.0-0.8); Eosinophils % 0.1 % (0.00-10.9); Hematocrit 27.7 VOL% (35.7-47.0); Hemoglobin 9.3 GM/DL (12.0-16.0); Immature Granulocytes % 3.9 %; Immature Granulocytes Absolute 0.82 #; Lymphocytes # 3.3 10*3/uL (1.4-4.0); Lymphocytes % 15.4 % (21.3-54.2); Mean Corpuscular HGB Conc 33.6 GM/DL (32-36); Mean Corpuscular Hemoglobin 30 PG (27-34); Mean Corpuscular Volume 87.9 FL (87-102); Mean Platelet Volume 9.8 FL (9.6-12.0); Monocytes # 2.3 10*3/uL (0.11-0.8); Monocytes % 10.7 % (1.7-12.7); Neutrophils # 14.7 10*3/uL (1.4-7.4); Neutrophils % 69.6 % (38.7-73.9); Platelet Count 518 T/CUMM (130-400); Red Blood Count 3.15 MC/CUMM (3.8-5.5); Red Cell Distribution Width 12.8 % (9.3-17.3); White Blood Count 21.1 T/CUMM (4-12)
[2017-10-22 05:26] LABS: Calcium 8.3 MG/DL (8.5-10.1); Osmolality,Calculated 304.4 MOS/KG (273-304); Potassium 3.7 MMOL/L (3.5-5.1)
[2017-10-22 05:40] LABS: Band Neutrophils 4 % (0-10); Giant Platelets Few; Hypochromasia 1+; Lymphocytes 23 % (20-55); Microcytosis Slight; Platelet Estimate Increased; Segmented Neutrophils 65 % (50-85); Total Cells Counted 100
[2017-10-22] MEDS: PIPERACILLIN/TAZOBACTAM 3,375 MG in SODIUM CHLORIDE 0.9% 100 ML IV SCH ×2 (06:16→15:19)
[2017-10-22] MEDS: predniSONE 20 MG TABLET PO SCH (08:47)
[2017-10-22] MEDS: CLORAZEPATE 7.5 MG TABLET PO SCH ×3 (08:47→21:54)
[2017-10-22] MEDS: busPIRone 15 MG TABLET PO SCH ×3 (08:47→21:54)
[2017-10-22] MEDS: DULoxetine 30 MG CAPSULE PO SCH (08:47)
[2017-10-22] MEDS: BENZTROPINE 1 MG TABLET PO SCH ×2 (08:47→21:54)
[2017-10-22] MEDS: DESITIN 4OZ/NYSTATIN 15 GRAM MIXTURE PASTE TOP SCH ×2 (08:48→21:57)
[2017-10-22] MEDS: NYSTATIN POWDER 15 GM BOTTLE TOP SCH ×2 (08:48→21:57)
[2017-10-22] MEDS: INSULIN GLARGINE 100 UNIT/ML SUBCUT SCH ×2 (08:48→21:55)
[2017-10-22] MEDS: ENOXAPARIN 40 MG/0.4 ML SYRINGE SUBCUT SCH (08:48)
[2017-10-22] MEDS: ARIPiprazole 5 MG TABLET PO SCH (09:08)
[2017-10-22] MEDS ORDERED: predniSONE 20 MG TABLET PO SCH (13:34)
[2017-10-22] MEDS: SODIUM CHLORIDE 0.9% 1,000 ML IV SCH (17:18)
[2017-10-22 17:47] LABS: Apearance,Urine CLEAR (Clear); Bilirubin,Urine Negative (Negative); Blood, Urine Small mg/dL (Negative); Glucose,Urine (UA) >=500 mg/dL (Negative); Ketones,Urine 20 mg/dL (Negative); Mucus,Urine Occasional /LPF (Occasional); Nitrite,Urine Negative (Negative); Protein,Urine Negative; RBC,Urine 14 /HPF (0-4); Squamous Epithelial Cell,Urine Occasional /HPF (0-10); Urine Color Straw (Yellow); Urine Specific Gravity 1.017 (1.001-1.035); Urine Urobilinogen < 2.0 EU/DL (0.2-1.0); WBC,Urine 16 /HPF (0-6)
[2017-10-22] MEDS: VANCOMYCIN INJ 1,250 MG in SODIUM CHLORIDE 0.9% 250 ML IV SCH (21:59)
[2017-10-23] MEDS: ALBUTEROL/IPRATROPIUM 3 ML NEB RESP TX SCH ×4 (00:24→19:00)
[2017-10-23] MEDS: PIPERACILLIN/TAZOBACTAM 3,375 MG in SODIUM CHLORIDE 0.9% 100 ML IV SCH ×3 (00:56→16:03)
[2017-10-23] MEDS: VALPROIC ACID 250 MG/5 ML UDCUP PO SCH ×4 (00:56→17:10)
[2017-10-23] MEDS: INSULIN LISPRO 100 UNIT/ML SUBCUT SCH ×6 (00:57→21:42)
[2017-10-23 05:08] LABS: Basophils # 0.1 10*3/uL (0.0-0.2); Basophils % 0.3 % (0.0-0.8); Eosinophils # 0.1 10*3/uL (0.0-0.87); Eosinophils % 0.3 % (0.00-10.9); Hemoglobin 9.1 GM/DL (12.0-16.0); Immature Granulocytes % 3.7 %; Lymphocytes # 4.2 10*3/uL (1.4-4.0); Lymphocytes % 19.7 % (21.3-54.2); Mean Corpuscular Hemoglobin 30 PG (27-34); Mean Corpuscular Volume 86.1 FL (87-102); Mean Platelet Volume 9.5 FL (9.6-12.0); Monocytes # 2.1 10*3/uL (0.11-0.8); Monocytes % 9.7 % (1.7-12.7); Neutrophils # 14.2 10*3/uL (1.4-7.4); Neutrophils % 66.3 % (38.7-73.9); Platelet Count 528 T/CUMM (130-400); Red Blood Count 3.02 MC/CUMM (3.8-5.5); Red Cell Distribution Width 12.9 % (9.3-17.3); White Blood Count 21.5 T/CUMM (4-12)
[2017-10-23 05:39] LABS: Band Neutrophils 2 % (0-10); Giant Platelets Few; Hypochromasia 1+; Lymphocytes 15 % (20-55); Microcytosis Slight; Ovalocytes Slight; Platelet Estimate Increased; Segmented Neutrophils 74 % (50-85); Total Cells Counted 100
[2017-10-23] MEDS: busPIRone 15 MG TABLET PO SCH ×3 (08:53→21:40)
[2017-10-23] MEDS: DULoxetine 30 MG CAPSULE PO SCH (08:53)
[2017-10-23] MEDS: CLORAZEPATE 7.5 MG TABLET PO SCH ×3 (08:53→21:40)
[2017-10-23] MEDS: BENZTROPINE 1 MG TABLET PO SCH ×2 (08:53→21:40)
[2017-10-23] MEDS: ENOXAPARIN 40 MG/0.4 ML SYRINGE SUBCUT SCH (08:54)
[2017-10-23] MEDS: ARIPiprazole 5 MG TABLET PO SCH (08:54)
[2017-10-23] MEDS: INSULIN GLARGINE 100 UNIT/ML SUBCUT SCH ×2 (08:54→21:41)
[2017-10-23] MEDS: NYSTATIN POWDER 15 GM BOTTLE TOP SCH ×2 (08:55→21:48)
[2017-10-23] MEDS: DESITIN 4OZ/NYSTATIN 15 GRAM MIXTURE PASTE TOP SCH ×2 (08:55→21:48)
[2017-10-23] MEDS ORDERED: FLUCONAZOLE INJ 200 MG in PREMIX 1 EACH IV SCH (16:00)
[2017-10-23] MEDS ORDERED: VANCOMYCIN INJ 1,250 MG in SODIUM CHLORIDE 0.9% 250 ML IV SCH (16:00)
[2017-10-23] MEDS: SODIUM CHLORIDE 0.9% 1,000 ML IV SCH ×2 (20:10→20:11)
[2017-10-24] MEDS: INSULIN LISPRO 100 UNIT/ML SUBCUT SCH ×6 (00:24→20:48)
[2017-10-24] MEDS: VALPROIC ACID 250 MG/5 ML UDCUP PO SCH ×4 (00:24→17:05)
[2017-10-24] MEDS: PIPERACILLIN/TAZOBACTAM 3,375 MG in SODIUM CHLORIDE 0.9% 100 ML IV SCH ×2 (00:26→08:48)
[2017-10-24] MEDS: ALBUTEROL/IPRATROPIUM 3 ML NEB RESP TX SCH ×4 (00:43→20:24)
[2017-10-24 05:20] LABS: Basophils % 0.2 % (0.0-0.8); Eosinophils # 0.1 10*3/uL (0.0-0.87); Eosinophils % 0.3 % (0.00-10.9); Hematocrit 25.4 VOL% (35.7-47.0); Hemoglobin 8.9 GM/DL (12.0-16.0); Immature Granulocytes % 2.9 %; Immature Granulocytes Absolute 0.53 #; Lymphocytes # 3.5 10*3/uL (1.4-4.0); Lymphocytes % 18.6 % (21.3-54.2); Mean Corpuscular Hemoglobin 30 PG (27-34); Mean Corpuscular Volume 85.2 FL (87-102); Mean Platelet Volume 9.4 FL (9.6-12.0); Monocytes # 1.6 10*3/uL (0.11-0.8); Monocytes % 8.5 % (1.7-12.7); NRBC # 0.02 10*3/uL; Neutrophils # 12.9 10*3/uL (1.4-7.4); Neutrophils % 69.5 % (38.7-73.9); Platelet Count 487 T/CUMM (130-400); Red Blood Count 2.98 MC/CUMM (3.8-5.5); Red Cell Distribution Width 12.7 % (9.3-17.3); White Blood Count 18.5 T/CUMM (4-12)
[2017-10-24 05:50] LABS: Calcium 7.7 MG/DL (8.5-10.1); Osmolality,Calculated 288.7 MOS/KG (273-304)
[2017-10-24 05:56] LABS: Band Neutrophils 4 % (0-10); Giant Platelets Few; Hypochromasia 1+; Lymphocytes 16 % (20-55); Ovalocytes Slight; Platelet Estimate Adequate; Segmented Neutrophils 74 % (50-85); Total Cells Counted 100
[2017-10-24 05:57] LABS: Microcytosis Slight
[2017-10-24] MEDS: ARIPiprazole 5 MG TABLET PO SCH (08:47)
[2017-10-24] MEDS: DULoxetine 30 MG CAPSULE PO SCH (08:47)
[2017-10-24] MEDS: busPIRone 15 MG TABLET PO SCH ×3 (08:47→20:43)
[2017-10-24] MEDS: BENZTROPINE 1 MG TABLET PO SCH ×2 (08:47→20:43)
[2017-10-24] MEDS: predniSONE 20 MG TABLET PO SCH (08:47)
[2017-10-24] MEDS: CLORAZEPATE 7.5 MG TABLET PO SCH ×3 (08:48→20:43)
[2017-10-24] MEDS: ENOXAPARIN 40 MG/0.4 ML SYRINGE SUBCUT SCH (08:48)
[2017-10-24] MEDS: INSULIN GLARGINE 100 UNIT/ML SUBCUT SCH ×2 (08:48→20:43)
[2017-10-24] MEDS: DESITIN 4OZ/NYSTATIN 15 GRAM MIXTURE PASTE TOP SCH ×2 (08:49→20:43)
[2017-10-24] MEDS: NYSTATIN POWDER 15 GM BOTTLE TOP SCH ×2 (08:49→20:43)
[2017-10-24] MEDS ORDERED: POTASSIUM CHLORIDE 20 MEQ TABLET PO PRN (08:52)
[2017-10-24] MEDS: POTASSIUM CHLORIDE RIDER 20 MEQ in PREMIX 1 EACH IV PRN ×2 (10:08→12:17)
[2017-10-24] MEDS: SULFAMETHOX/TRIMETHOPRIM 800-160 MG TABLET PO SCH ×2 (11:49→20:43)
[2017-10-25] MEDS: ALBUTEROL/IPRATROPIUM 3 ML NEB RESP TX SCH ×4 (00:15→20:19)
[2017-10-25] MEDS: VALPROIC ACID 250 MG/5 ML UDCUP PO SCH ×4 (00:40→17:11)
[2017-10-25] MEDS: ACETAMINOPHEN 500 MG TABLET PO PRN ×3 (00:40→15:35)
[2017-10-25] MEDS: INSULIN LISPRO 100 UNIT/ML SUBCUT SCH ×6 (01:14→21:02)
[2017-10-25 07:36] LABS: Calcium 8.1 MG/DL (8.5-10.1); Osmolality,Calculated 282.3 MOS/KG (273-304); Potassium 3.6 MMOL/L (3.5-5.1)
[2017-10-25] MEDS: predniSONE 20 MG TABLET PO SCH (09:08)
[2017-10-25] MEDS: CLORAZEPATE 7.5 MG TABLET PO SCH ×3 (09:08→21:02)
[2017-10-25] MEDS: DULoxetine 30 MG CAPSULE PO SCH (09:08)
[2017-10-25] MEDS: ARIPiprazole 5 MG TABLET PO SCH (09:08)
[2017-10-25] MEDS: busPIRone 15 MG TABLET PO SCH ×3 (09:08→21:02)
[2017-10-25] MEDS: BENZTROPINE 1 MG TABLET PO SCH ×2 (09:09→21:02)
[2017-10-25] MEDS: NYSTATIN POWDER 15 GM BOTTLE TOP SCH ×2 (09:09→21:05)
[2017-10-25] MEDS: INSULIN GLARGINE 100 UNIT/ML SUBCUT SCH ×2 (09:09→21:03)
[2017-10-25] MEDS: DESITIN 4OZ/NYSTATIN 15 GRAM MIXTURE PASTE TOP SCH ×2 (09:09→21:05)
[2017-10-25] MEDS: ENOXAPARIN 40 MG/0.4 ML SYRINGE SUBCUT SCH (09:09)
[2017-10-25] MEDS: SULFAMETHOX/TRIMETHOPRIM 800-160 MG TABLET PO SCH ×2 (09:09→21:02)
[2017-10-25 09:42] LABS: Apearance,Urine CLOUDY (Clear); Bilirubin,Urine Negative (Negative); Blood, Urine Large mg/dL (Negative); Glucose,Urine (UA) Negative (Negative); Ketones,Urine 5 mg/dL (Negative); Nitrite,Urine Negative (Negative); Protein,Urine 30 MG/DL; RBC,Urine 1216 /HPF (0-4); Squamous Epithelial Cell,Urine Occasional /HPF (0-10); Urine Color Yellow (Yellow); Urine Specific Gravity 1.013 (1.001-1.035); Urine Urobilinogen < 2.0 EU/DL (0.2-1.0); WBC,Urine 63 /HPF (0-6)
[2017-10-26] MEDS: ALBUTEROL/IPRATROPIUM 3 ML NEB RESP TX SCH ×4 (00:15→19:49)
[2017-10-26] MEDS: VALPROIC ACID 250 MG/5 ML UDCUP PO SCH ×2 (00:23→06:12)
[2017-10-26] MEDS: INSULIN LISPRO 100 UNIT/ML SUBCUT SCH ×6 (00:52→21:46)
[2017-10-26 06:25] LABS: Basophils % 0.3 % (0.0-0.8); Eosinophils # 0.1 10*3/uL (0.0-0.87); Eosinophils % 0.5 % (0.00-10.9); Hematocrit 25.7 VOL% (35.7-47.0); Hemoglobin 8.5 GM/DL (12.0-16.0); Lymphocytes # 3.3 10*3/uL (1.4-4.0); Lymphocytes % 22.4 % (21.3-54.2); Mean Corpuscular HGB Conc 33.1 GM/DL (32-36); Mean Corpuscular Hemoglobin 29 PG (27-34); Mean Corpuscular Volume 88.9 FL (87-102); Mean Platelet Volume 9.4 FL (9.6-12.0); Monocytes # 1.4 10*3/uL (0.11-0.8); Monocytes % 9.2 % (1.7-12.7); Neutrophils # 9.7 10*3/uL (1.4-7.4); Neutrophils % 65.6 % (38.7-73.9); Platelet Count 383 T/CUMM (130-400); Red Blood Count 2.89 MC/CUMM (3.8-5.5); Red Cell Distribution Width 13.2 % (9.3-17.3); White Blood Count 14.8 T/CUMM (4-12)
[2017-10-26 07:00] LABS: Calcium 7.7 MG/DL (8.5-10.1); Osmolality,Calculated 283.1 MOS/KG (273-304); Potassium 3.6 MMOL/L (3.5-5.1)
[2017-10-26] MEDS: INSULIN GLARGINE 100 UNIT/ML SUBCUT SCH ×2 (09:06→21:46)
[2017-10-26] MEDS: DIVALPROEX 500 MG TABLET PO SCH ×2 (09:09→21:45)
[2017-10-26] MEDS: ENOXAPARIN 40 MG/0.4 ML SYRINGE SUBCUT SCH (09:09)
[2017-10-26] MEDS: ARIPiprazole 5 MG TABLET PO SCH (09:09)
[2017-10-26] MEDS: BENZTROPINE 1 MG TABLET PO SCH ×2 (09:10→21:45)
[2017-10-26] MEDS: SULFAMETHOX/TRIMETHOPRIM 800-160 MG TABLET PO SCH (09:10)
[2017-10-26] MEDS: DESITIN 4OZ/NYSTATIN 15 GRAM MIXTURE PASTE TOP SCH ×2 (09:10→21:50)
[2017-10-26] MEDS: DULoxetine 30 MG CAPSULE PO SCH (09:10)
[2017-10-26] MEDS: busPIRone 15 MG TABLET PO SCH ×3 (09:10→21:45)
[2017-10-26] MEDS: CLORAZEPATE 7.5 MG TABLET PO SCH ×3 (09:10→21:45)
[2017-10-26] MEDS: predniSONE 20 MG TABLET PO SCH (09:10)
[2017-10-26] MEDS: NYSTATIN POWDER 15 GM BOTTLE TOP SCH ×2 (09:10→21:50)
[2017-10-26] MEDS: ACETAMINOPHEN 500 MG TABLET PO PRN (17:00)
[2017-10-26] MEDS ORDERED: NITROFURANTOIN MACRO/MONO 100 MG CAPSULE PO SCH (21:00)
[2017-10-26] MEDS: SULFAMETHOX/TRIMETHOPRIM 400-80 MG TABLET PO SCH (21:45)
[2017-10-27] MEDS: INSULIN LISPRO 100 UNIT/ML SUBCUT SCH ×6 (00:11→20:56)
[2017-10-27] MEDS: ALBUTEROL/IPRATROPIUM 3 ML NEB RESP TX SCH ×4 (00:46→19:21)
[2017-10-27] MEDS: BENZTROPINE 1 MG TABLET PO SCH ×2 (09:13→21:06)
[2017-10-27] MEDS: ARIPiprazole 5 MG TABLET PO SCH (09:13)
[2017-10-27] MEDS: DULoxetine 30 MG CAPSULE PO SCH (09:13)
[2017-10-27] MEDS: predniSONE 20 MG TABLET PO SCH (09:13)
[2017-10-27] MEDS: DIVALPROEX 500 MG TABLET PO SCH ×2 (09:13→21:07)
[2017-10-27] MEDS: SULFAMETHOX/TRIMETHOPRIM 400-80 MG TABLET PO SCH ×2 (09:13→21:06)
[2017-10-27] MEDS: ENOXAPARIN 40 MG/0.4 ML SYRINGE SUBCUT SCH (09:13)
[2017-10-27] MEDS: busPIRone 15 MG TABLET PO SCH ×3 (09:13→21:06)
[2017-10-27] MEDS: DESITIN 4OZ/NYSTATIN 15 GRAM MIXTURE PASTE TOP SCH ×2 (09:14→21:09)
[2017-10-27] MEDS: NYSTATIN POWDER 15 GM BOTTLE TOP SCH ×2 (09:14→21:09)
[2017-10-27] MEDS: INSULIN GLARGINE 100 UNIT/ML SUBCUT SCH ×2 (09:21→21:07)
[2017-10-27] MEDS: ACETAMINOPHEN 500 MG TABLET PO PRN (13:29)
[2017-10-28] MEDS: ALBUTEROL/IPRATROPIUM 3 ML NEB RESP TX SCH ×4 (01:00→18:09)
[2017-10-28] MEDS: INSULIN LISPRO 100 UNIT/ML SUBCUT SCH ×5 (08:37→21:48)
[2017-10-28] MEDS: DULoxetine 30 MG CAPSULE PO SCH (09:20)
[2017-10-28] MEDS: DIVALPROEX 500 MG TABLET PO SCH ×2 (09:20→21:47)
[2017-10-28] MEDS: ARIPiprazole 5 MG TABLET PO SCH (09:20)
[2017-10-28] MEDS: SULFAMETHOX/TRIMETHOPRIM 400-80 MG TABLET PO SCH ×2 (09:20→21:47)
[2017-10-28] MEDS: BENZTROPINE 1 MG TABLET PO SCH ×2 (09:20→21:47)
[2017-10-28] MEDS: DESITIN 4OZ/NYSTATIN 15 GRAM MIXTURE PASTE TOP SCH ×2 (09:21→21:48)
[2017-10-28] MEDS: NYSTATIN POWDER 15 GM BOTTLE TOP SCH ×2 (09:21→21:49)
[2017-10-28] MEDS: ENOXAPARIN 40 MG/0.4 ML SYRINGE SUBCUT SCH (09:21)
[2017-10-28] MEDS: busPIRone 15 MG TABLET PO SCH ×3 (09:21→21:48)
[2017-10-28] MEDS: predniSONE 20 MG TABLET PO SCH (09:21)
[2017-10-28] MEDS: INSULIN GLARGINE 100 UNIT/ML SUBCUT SCH ×2 (09:25→21:48)
[2017-10-29] MEDS: ALBUTEROL/IPRATROPIUM 3 ML NEB RESP TX SCH ×4 (00:57→19:18)
[2017-10-29] MEDS: INSULIN LISPRO 100 UNIT/ML SUBCUT SCH ×6 (01:13→21:57)
[2017-10-29 05:17] LABS: Basophils # 0.1 10*3/uL (0.0-0.2); Basophils % 0.4 % (0.0-0.8); Eosinophils % 0.3 % (0.00-10.9); Hematocrit 29.5 VOL% (35.7-47.0); Hemoglobin 9.7 GM/DL (12.0-16.0); Immature Granulocytes % 1.4 %; Immature Granulocytes Absolute 0.18 #; Lymphocytes # 4.4 10*3/uL (1.4-4.0); Lymphocytes % 33.6 % (21.3-54.2); Mean Corpuscular HGB Conc 32.9 GM/DL (32-36); Mean Corpuscular Hemoglobin 30 PG (27-34); Mean Platelet Volume 9.5 FL (9.6-12.0); Monocytes # 1.1 10*3/uL (0.11-0.8); Monocytes % 8.3 % (1.7-12.7); Neutrophils # 7.3 10*3/uL (1.4-7.4); Platelet Count 459 T/CUMM (130-400); Red Blood Count 3.24 MC/CUMM (3.8-5.5); Red Cell Distribution Width 13.2 % (9.3-17.3)
[2017-10-29 05:49] LABS: Calcium 8.5 MG/DL (8.5-10.1); Osmolality,Calculated 276.5 MOS/KG (273-304); Potassium 4.1 MMOL/L (3.5-5.1)
[2017-10-29] MEDS: ARIPiprazole 5 MG TABLET PO SCH (09:49)
[2017-10-29] MEDS: ENOXAPARIN 40 MG/0.4 ML SYRINGE SUBCUT SCH (09:49)
[2017-10-29] MEDS: DULoxetine 30 MG CAPSULE PO SCH (09:50)
[2017-10-29] MEDS: predniSONE 20 MG TABLET PO SCH (09:50)
[2017-10-29] MEDS: BENZTROPINE 1 MG TABLET PO SCH ×2 (09:50→21:58)
[2017-10-29] MEDS: NYSTATIN POWDER 15 GM BOTTLE TOP SCH ×2 (09:50→22:00)
[2017-10-29] MEDS: busPIRone 15 MG TABLET PO SCH ×3 (09:50→21:58)
[2017-10-29] MEDS: DIVALPROEX 500 MG TABLET PO SCH ×2 (09:50→21:58)
[2017-10-29] MEDS: INSULIN GLARGINE 100 UNIT/ML SUBCUT SCH ×2 (09:50→21:58)
[2017-10-29] MEDS: DESITIN 4OZ/NYSTATIN 15 GRAM MIXTURE PASTE TOP SCH ×2 (09:50→22:00)
[2017-10-29] MEDS: SULFAMETHOX/TRIMETHOPRIM 400-80 MG TABLET PO SCH (09:50)
[2017-10-29] MEDS ORDERED: LINEZOLID INJ 600 MG in PREMIX 1 EACH IV SCH (16:30)
[2017-10-29] MEDS ORDERED: GENTAMICIN INJ 80 MG in PREMIX 1 EACH IV SCH (16:30)
[2017-10-30] MEDS: INSULIN LISPRO 100 UNIT/ML SUBCUT SCH ×4 (00:07→12:15)
[2017-10-30] MEDS: ALBUTEROL/IPRATROPIUM 3 ML NEB RESP TX SCH ×2 (00:32→06:59)
[2017-10-30] MEDS ORDERED: MICAFUNGIN 50 MG in SODIUM CHLORIDE 0.9% 100 ML IV SCH (09:00)
[2017-10-30] MEDS: DIVALPROEX 500 MG TABLET PO SCH (10:02)
[2017-10-30] MEDS: BENZTROPINE 1 MG TABLET PO SCH (10:02)
[2017-10-30] MEDS: predniSONE 20 MG TABLET PO SCH (10:02)
[2017-10-30] MEDS: ARIPiprazole 5 MG TABLET PO SCH (10:02)
[2017-10-30] MEDS: busPIRone 15 MG TABLET PO SCH (10:03)
[2017-10-30] MEDS: INSULIN GLARGINE 100 UNIT/ML SUBCUT SCH (10:03)
[2017-10-30] MEDS: DULoxetine 30 MG CAPSULE PO SCH (10:03)
[2017-10-30] MEDS: DESITIN 4OZ/NYSTATIN 15 GRAM MIXTURE PASTE TOP SCH (10:03)
[2017-10-30] MEDS: ENOXAPARIN 40 MG/0.4 ML SYRINGE SUBCUT SCH (10:03)
[2017-10-30] MEDS: NYSTATIN POWDER 15 GM BOTTLE TOP SCH (10:03)
[2017-10-30 11:48] VITALS: BP 130/80
== END 2017-10-30 13:00 | disposition home or self-care (01) | DRG 720 ==
LOC: EDUNIT# → EDBD → N.ED 21:11 → SUATTDRO 10-12 00:45 → N.EDINP 10-12 00:45 → N.ICU 10-12 01:30 → N.2E 10-20 11:42
PROVIDERS: ATTEND Internal Medicine